=== PATIENT | female | born 1935 | race Caucasian/White ===

== ENCOUNTER → 2018-02-22 | Outpatient (CLI) | payer MEDICARE, OTHER ==
[2018-02-22 12:31] LABS: ABG BASE EXCESS 2.7 MMOL/L (-2.5-2.5); ABG OXYGEN SATURATION 98 % (94-100); ABG PCO2 42 MMHG (35-45); ABG PH 7.42 (7.37-7.43); ABG PO2 93 MMHG (79-93); ABG TCO2 28.1 MMOL/L (21.0-31.0)
[2018-02-22 12:33] LABS: ALLENS TEST YES-POS; INSPIRED O2 ROOM AIR; PATIENT TEMP 98.6; VENTILATOR NO
--- NOTE | 2018-02-22 13:03 | Diagnostic Imaging Report ---
INDICATION: COPD. TIME OF EXAM: 12:27 PM Correlation is made with prior study 07/28/2016. FINDINGS: Heart size is stable. Large hiatal hernia is again noted. The lungs are clear. No infiltrate or failure is detected. No effusion or pneumothorax is seen. There is some linear scarring or atelectasis right upper lobe, stable. IMPRESSION: Stable chest. No acute feature is detected. Dictated by: Dictated on workstation # [id number]
== END ==
LOC: LAB 11:43
PROVIDERS: ATTEND Nurse Practitioner Family
DX: J44.9 Chronic obstructive pulmonary disease, unspecified (principal)
CPT/HCPCS: 36600; 71046; 82805

== ENCOUNTER → 2019-02-01 | Outpatient (CLI) | payer MEDICARE, OTHER | LOC: RT 08:50 | PROVIDERS: ATTEND Nurse Practitioner Family | DX: J44.9 Chronic obstructive pulmonary disease, unspecified (principal); G47.30 Sleep apnea, unspecified; R09.02 Hypoxemia; R06.00 Dyspnea, unspecified; E66.9 Obesity, unspecified | CPT/HCPCS: 94060; 94726; 94729 ==